=== PATIENT | female | born 1955 | race Caucasian/White ===

== ENCOUNTER → 2017-03-04 | Outpatient (CLI) | payer BC ==
[~2017-03-04] MED LIST: ACET500 PO; ASPI325 PO; ASPI81CH PO; Aspirin EC81 MG PO; CHOL10002 PO; GLUCOSAMINE1000 MG PO; HYDR1TAB94 PO; KRILL OIL 3001 EACH PO; MELA3; MUPI2TO; PROBIOTIC1 EAC1 PO; SHINGRIX V50 MCG/0.5 IM; TRAM50 PO; TURMERIC500 M2 PO; WOMEN'S 50+ DA1 EAC1 PO
[2017-03-09 11:28] LABS: HPV Genotype 16 Not Detected (NOTDET); HPV Genotype 18 Not Detected (NOTDET)
[2017-03-18 13:55] LABS: HPV High Risk Other Detected (NOTDET)
== END | disposition home or self-care (01) ==
LOC: LAB 13:58
PROVIDERS: Obstetrics & Gynecology Gynecology
DX: Z12.4 Encounter for screening for malignant neoplasm of cervix (principal)
CPT/HCPCS: 87624; G0123

== ENCOUNTER → 2018-05-04 | Outpatient (CLI) | payer BC ==
[2018-05-06 15:07] LABS: HPV 16 Negative (Negative); HPV 18 Negative (Negative); HPV OTHER HR TYPES Positive (Negative)
== END | disposition home or self-care (01) ==
LOC: LAB 16:08 → LAB SHORT 16:08
PROVIDERS: Obstetrics & Gynecology Gynecology
DX: Z12.4 Encounter for screening for malignant neoplasm of cervix (principal)
CPT/HCPCS: 87624; 87625; G0123

== ENCOUNTER → 2018-06-16 | Outpatient (CLI) | payer BC | END | disposition home or self-care (01) | LOC: LAB SHORT 07:51 → PLD 07:51 | DX: N87.9 Dysplasia of cervix uteri, unspecified (principal); N71.9 Inflammatory disease of uterus, unspecified | CPT/HCPCS: 88305 ==

== ENCOUNTER 2018-08-25 05:54 | Day surgery (SDC) | payer BC ==
[~2018-08-25] VITALS: Ht 152.4 cm; Wt 77.5 kg
[~2018-08-25 05:54] MED LIST changes: +ALEVE220 MG PO; +DIPH50 PO; -MELA3; +MELA3 PO
--- NOTE | 2018-08-25 06:51 | NUR ---
Ambulatory in Day Surgery History, Chart, Medications and Allergies reviewed before start of procedure.Patient confirms NPO status and agrees with scheduled surgery. Lungs clear T/O to Auscultation. Patient reports completing Chlorhexadine shower X2 prior to admission to hospital.
--- NOTE | 2018-08-25 15:00 | NUR ---
PT REFUSING BLOOD DRAW. THIS RN EDUCATED PT ON BENEFITS OF DRAW AND PT STILL REFUSES. WILL NOTIFY DR. ANNA.
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
--- NOTE | 2018-08-26 05:05 | NUR ---
SUMMARY: PT HAS DONE WELL POD 1. VSS, SCANT VAGINAL BLEED. PT TOOK WALK BEFORE BED, GIVEN PO PAIN MEDS X1, OTHERWISE HAS DENIED PAIN. TOLERATING REG DIET, NO N/V, SALINE LOCKED SINCE MY SHIFT START, PT IS DRINKING PLENTY OF WATER. PLAN TO DC MAZA THIS AM. NO SAFETY CONCERNS AT THIS TIME
--- NOTE | 2018-08-26 06:09 | NUR ---
DC'D PT VAGINAL PACKING AND MAZA AT THIS TIME, AWAITING VOID.
--- NOTE | 2018-08-26 07:00 | NUR ---
REPORT FROM DARREL MAYORGA. ASSUMED PT CARE. PT SITTING UP IN BED. CHEERFUL. DENIES NEEDS.
--- NOTE | 2018-08-26 07:15 | NUR ---
PT WALKING HALLS, GAIT WNL.
--- NOTE | 2018-08-26 07:30 | NUR ---
PT WALKING IN HALLS. GAIT WNL.
--- NOTE | 2018-08-26 07:54 | NUR ---
DR ANNA TO ROOM FOR EVAL AND TO DISCUSS DC. ASSESSMENT CHARTED.
--- NOTE | 2018-08-26 08:00 | NUR ---
PT UP TO RR, VOIDED WNL. POST VOID RESIDUAL >250ML. DR ANNA AWARE. PLAN TO CHECK AGAIN AND ORDERS TO PLACE CATHETER RECEIVED IN THE EVENT THAT PT CONTINUES TO HAVE RETENTION. PT UNDERSTANDS. DC TODAY.
[2018-08-26] MEDS ORDERED: OXYC5 PO (08:37)
--- NOTE | 2018-08-26 09:18 | NUR ---
PT WALKING HALLS. GAIT WNL.
--- NOTE | 2018-08-26 09:40 | NUR ---
PT VOIDED. POST VOID RESIDUAL >180ML. PT STATES TO GO AHEAD AND PLACE CATHETER.
--- NOTE | 2018-08-26 09:45 | NUR ---
16FR CATHETER PLACED. BALLOON INFLATED. GOOD URINE RETURN. STAT LOCK TO RIGHT LEG. INSTRUCTED PT HOW TO USE.
--- NOTE | 2018-08-26 09:52 | NUR ---
PT MEDICATED WITH 1 NORCO FOR C/O PAIN.
--- NOTE | 2018-08-26 09:56 | NUR ---
appt made for wednesdayaugust 29 at [address] removal [address] pitts office. pt aware. info on dc papers.
--- NOTE | 2018-08-26 10:30 | NUR ---
PT DRESSED AND WAITING FOR SPOUSE TO COME GET HER.
--- NOTE | 2018-08-26 10:55 | NUR ---
PT IV REMOVED. DRESSING PLACED. PT GEOVANNA WELL.
--- NOTE | 2018-08-26 11:00 | NUR ---
PT DC HOME. REVIEWED DC INSTRUCTIONS AND FU APPTS. PT ESCORTED TO FRONT LOBBY AND ASSISTED INTO CAR. ALL BELONGINGS SENT HOME.
== END 2018-08-26 11:04 | disposition home or self-care (01) ==
LOC: ORSCMMR 05:54 → ORD 07:30 → SURS 09:12 → ORSCMMR 08-26 11:04
PROVIDERS: Obstetrics & Gynecology Gynecology
PROC: 0JQC0ZZ Repair Pelvic Region Subcutaneous Tissue and Fascia, Open Approach (ICD-10-PCS; principal; 2018-08-25 07:30)
PROC: 0TSD0ZZ Reposition Urethra, Open Approach (ICD-10-PCS; principal; 2018-08-25 07:30)
DX: N81.10 Cystocele, unspecified (principal); N39.3 Stress incontinence (female) (male)
CPT/HCPCS: A9270-GY; C1771; J0690; J1100; J1885; J2250; J2405; J2704; J3010; J7120

== ENCOUNTER 2025-01-26 11:04 | Inpatient (IN) | payer MEDICARE ==
[2025-01-26] VITALS (40 sets, daily range): BP systolic 83–126; BP diastolic 61–102
[~2025-01-26] VITALS: Ht 170.2 cm; Wt 77.5 kg
[~2025-01-26 11:04] MED LIST changes: +OXYC5 PO
[2025-01-26 11:28] LABS: BASOPHILS ABSOLUTE AUTO 0.05 K/mm3 (0.00-0.23); BASOPHILS PERCENT AUTO 0 % (0-2); EOSINOPHILS ABSOLUTE AUTO 0.00 K/mm3 (0.00-0.68); EOSINOPHILS PERCENT AUTO 0 % (0-6); Hematocrit 44.7 % (33.0-51.0); Hemoglobin 15.0 g/dL (11.5-16.0); IMMATURE GRAN ABSOLUTE AUTO 0.09 K/mm3 (0.00-0.10); IMMATURE GRAN PERCENT AUTO 0 % (0-1); LYMPHOCYTES ABSOLUTE AUTO 2.35 K/mm3 (0.84-5.20); LYMPHOCYTES PERCENT AUTO 11 % (21-46); MONOCYTES ABSOLUTE AUTO 1.31 K/mm3 (0.16-1.47); MONOCYTES PERCENT AUTO 6 % (4-13); Mean Corpuscular HGB Conc 33.6 g/dL (31.5-36.5); Mean Corpuscular Volume 86 fL (80-100); NEUTROPHILS ABSOLUTE AUTO 16.79 K/mm3 (1.96-9.15); NEUTROPHILS PERCENT AUTO 82 % (41-73); NRBC ABSOLUTE 0.00 K/mm3 (0.00-0.02); NRBC Auto 0.0 /100 WBC (0.0-0.2); Platelet Count 226 K/mm3 (150-400); RDW Coefficient Variation 13.4 % (11.7-14.2); RDW Standard Deviation 42.1 fL (35.1-46.3)
[2025-01-26] MEDS ORDERED: Verapamil HCL 2.5 MG/ML 2ML Injection ONE (11:30)
[2025-01-26] MEDS ORDERED: Midazolam HCl 1MG / ML 2ML Vial ONE ×3 (11:30→12:32)
[2025-01-26] MEDS ORDERED: Heparin Sodium 1000 Units/ML 10ML MDV ONE ×2 (11:30→12:31)
[2025-01-26] MEDS ORDERED: FentaNYL Citrate 50 MCG/ML 2 ML Injection ONE (11:30)
[2025-01-26] MEDS ORDERED: NS 1,000 ML IV ONE ×2 (11:31→12:29)
[2025-01-26] MEDS ORDERED: NS 2,000 ML IV ONE (11:31)
[2025-01-26] MEDS ORDERED: Nitroglycerin 2 MG/20 ML BTL ONE (11:31)
[2025-01-26] MEDS ORDERED: NS 250 ML IV ONE (11:31)
[2025-01-26] MEDS ORDERED: Phenylephrine HCl 100 MCG/ML-NS 10MLSYR (1MG/10ML) ONE (11:35)
[2025-01-26 11:51] LABS: Alanine Aminotransfer (ALT/SGP 70 U/L (12-78); Albumin, Blood 3.6 g/dL (3.4-5.0); Albumin/Globulin Ratio 0.9 (0.8-1.8); Anion Gap 10 mmol/L (3-11); Aspartate Aminotrans (AST/SGOT 173 U/L (12-37); Bilirubin, Total 0.9 mg/dL (0.1-1.0); Blood Urea Nitrogen 31 mg/dL (8-24); CHOL/HDL RATIO 2.9; CO2, Blood 27 mmol/L (21-32); Calcium, Blood 9.8 mg/dL (8.5-10.1); Chloride, Blood 100 mmol/L (98-108); Cholesterol 193 mg/dL (50-200); Creatinine, Blood 1.35 mg/dL (0.40-1.00); Globulin, Blood 4.1 g/dL (2.2-4.0); Glucose, Blood 134 mg/dL (70-99); HDL Cholesterol 67 mg/dL (>39); LDL/HDL RATIO 1.3; Low Density Lipoprotein Chol 90 mg/dL (0-110); Magnesium, Blood 2.0 mg/dL (1.6-2.4); Potassium, Blood 3.3 mmol/L (3.5-5.5); Sodium, Blood 134 mmol/L (136-145); Total Protein, Blood 7.7 g/dL (6.4-8.2); Triglycerides 182 mg/dL (30-160); Very Low Density Lipoprot Chol 36 mg/dL (6-32)
[2025-01-26 11:52] LABS: Calcium, Ionized (POC) 1.20 mmol/L (1.10-1.46); Chloride (POC) 102 mmol/L (98-108); Creatinine (POC) 1.6 mg/dL (0.6-1.0); Glucose (ISTAT POC) 127 mg/dL (70-99); Hematocrit (POC) 46.0 % (36.0-46.0); Hemoglobin (POC) 15.6 g/dL (12.0-16.0); Potassium (POC) 3.3 mmol/L (3.5-5.5); Sodium (POC) 136 mmol/L (135-148); Total CO2 (POC) 23 mmol/L (21-32)
[2025-01-26] MEDS ORDERED: NS 500 ML IV ONE ×2 (12:30→12:33)
[2025-01-26] MEDS ORDERED: FLU VACC TS2025(65UP)/MF59C/PF 45 MCG/0.5 ML SYRINGE IM SCH (13:50)
[2025-01-26] MEDS ORDERED: NS 1,000 ML IV SCH (14:10)
--- NOTE | 2025-01-26 14:15 | NUR ---
ADMIT PT ARRIVED TO ICU 12 AT 1321 VIA BED. PT IS AWAKE, ALERT, AND ORIENTED UPON ARRIVAL. PT WITH IABP IN PLACE TO RIGHT GROIN SITE. IABP ON ECG TRIGGER AND 1:1 TIMING. SITE C/D/I, SUTURES INTACT. PT WITH RIGHT RADIAL TR BAND IN PLACE. PT WITH BILAT RADIAL AND PEDAL PULSES PRESENT. PT REPORTS MILD NUMBNESS TO ALL EXTREMITIES. VITAL SIGNS STABLE. PIV'S SALINE LOCKED UPON ARRIVAL. DR FONTAINE AT BEDSIDE TO SEE PT AT THIS TIME. PLAN FOR TRANSFER TO [facility] TOMORROW MORNING.
[2025-01-26 14:21] LABS: Anti-Xa UFH, PHA Monitoring <0.10 IU/mL; Prothrombin Time Results 13.3 Sec (9.7-11.5)
[2025-01-26] MEDS ORDERED: Heparin Sodium,Porcine/0.5 NS 500 ML IV SCH (14:45)
--- NOTE | 2025-01-26 18:00 | NUR ---
SHIFT SUMMARY PT REMAINS AWAKE, ALERT, AND ORIENTED. PT REMAINS ANXIOUS ABOUT HOSPITAL STAY AND PLANNED TRANSFER FOR CABG. PT REASSURED EXTENSIVELY BY DR FONTAINE, THIS RN, AND PRICING INTERN GATITO. PT REPORTS FEELING MORE AT EASE THIS EVENING. PT REMAINS WITH RIGHT FEMORAL BALLOON PUMP IN PLACE. SITE HAS REMAINED C/D/I, SOFT, NO OOZING OR HEMATOMA NOTED. IABP REMAINS 1:1 WITH ECG TRIGGER, AND NO BLOOD NOTED IN TUBING. RIGHT RADIAL ACCESS SITE TR BAND REMOVED PER POLICY, SITE SOFT, NONTENDER, NO HEMATOMA NOTED. VITAL SIGNS HAVE REMAINED STABLE. PT ON ROOM AIR. HEPARIN GTT INFUSING AT 12 UNTIS/KG/HR AND NS AT 100 ML/HR. MAZA IN PLACE WITH YELLOW URINE OUTPUT NOTED. PT REMAINS WITH INTACT PEDAL AND RADIAL PULSES, AND IMPROVED PINK COLOR TO EXTREMITIES. PT TAKING PO INTAKE WELL. WILL CONTINUE TO MONITOR AND REPORT OFF TO ONCOMING RN.
[2025-01-26] MEDS ORDERED: Heparin Sodium,Porcine 5,000 UNIT/0.5 ML SDV SC ONE (18:51)
[2025-01-26 21:34] LABS: Anti-Xa UFH, PHA Monitoring 0.16 IU/mL; Prothrombin Time Results 12.4 Sec (9.7-11.5)
[2025-01-26] MEDS ORDERED: Dose Adjust by Pharmacy XX STA (21:48)
[2025-01-26 22:04] LABS: BASOPHILS ABSOLUTE AUTO 0.05 K/mm3 (0.00-0.23); BASOPHILS PERCENT AUTO 0 % (0-2); EOSINOPHILS ABSOLUTE AUTO 0.03 K/mm3 (0.00-0.68); EOSINOPHILS PERCENT AUTO 0 % (0-6); Hematocrit 36.7 % (33.0-51.0); Hemoglobin 11.8 g/dL (11.5-16.0); IMMATURE GRAN ABSOLUTE AUTO 0.05 K/mm3 (0.00-0.10); IMMATURE GRAN PERCENT AUTO 0 % (0-1); LYMPHOCYTES ABSOLUTE AUTO 1.93 K/mm3 (0.84-5.20); LYMPHOCYTES PERCENT AUTO 15 % (21-46); MONOCYTES ABSOLUTE AUTO 0.65 K/mm3 (0.16-1.47); MONOCYTES PERCENT AUTO 5 % (4-13); Mean Corpuscular HGB Conc 32.2 g/dL (31.5-36.5); Mean Corpuscular Volume 88 fL (80-100); NEUTROPHILS ABSOLUTE AUTO 9.93 K/mm3 (1.96-9.15); NEUTROPHILS PERCENT AUTO 79 % (41-73); NRBC ABSOLUTE 0.00 K/mm3 (0.00-0.02); NRBC Auto 0.0 /100 WBC (0.0-0.2); Platelet Count 139 K/mm3 (150-400); RDW Coefficient Variation 13.5 % (11.7-14.2); RDW Standard Deviation 43.7 fL (35.1-46.3)
[2025-01-26 22:07] LABS: Alanine Aminotransfer (ALT/SGP 59 U/L (12-78); Albumin, Blood 3.1 g/dL (3.4-5.0); Albumin/Globulin Ratio 0.9 (0.8-1.8); Anion Gap 6 mmol/L (3-11); Aspartate Aminotrans (AST/SGOT 132 U/L (12-37); Bilirubin, Direct <0.1 mg/dL (0.0-0.3); Bilirubin, Indirect Unable to Calculate mg/dL (0.1-0.7); Bilirubin, Total 0.5 mg/dL (0.1-1.0); Blood Urea Nitrogen 31 mg/dL (8-24); CO2, Blood 24 mmol/L (21-32); Calcium, Blood 8.2 mg/dL (8.5-10.1); Chloride, Blood 108 mmol/L (98-108); Creatinine, Blood 0.92 mg/dL (0.40-1.00); Globulin, Blood 3.3 g/dL (2.2-4.0); Glucose, Blood 120 mg/dL (70-99); Potassium, Blood 3.6 mmol/L (3.5-5.5); Sodium, Blood 134 mmol/L (136-145); Total Protein, Blood 6.4 g/dL (6.4-8.2)
[2025-01-27] VITALS (28 sets, daily range): BP systolic 81–105; BP diastolic 59–78
[2025-01-27 04:06] LABS: BASOPHILS ABSOLUTE AUTO 0.05 K/mm3 (0.00-0.23); BASOPHILS PERCENT AUTO 1 % (0-2); EOSINOPHILS ABSOLUTE AUTO 0.06 K/mm3 (0.00-0.68); EOSINOPHILS PERCENT AUTO 1 % (0-6); Hematocrit 35.6 % (33.0-51.0); Hemoglobin 11.8 g/dL (11.5-16.0); IMMATURE GRAN ABSOLUTE AUTO 0.04 K/mm3 (0.00-0.10); IMMATURE GRAN PERCENT AUTO 0 % (0-1); LYMPHOCYTES ABSOLUTE AUTO 1.74 K/mm3 (0.84-5.20); LYMPHOCYTES PERCENT AUTO 16 % (21-46); MONOCYTES ABSOLUTE AUTO 0.63 K/mm3 (0.16-1.47); MONOCYTES PERCENT AUTO 6 % (4-13); Mean Corpuscular HGB Conc 33.1 g/dL (31.5-36.5); Mean Corpuscular Volume 87 fL (80-100); NEUTROPHILS ABSOLUTE AUTO 8.38 K/mm3 (1.96-9.15); NEUTROPHILS PERCENT AUTO 77 % (41-73); NRBC ABSOLUTE 0.00 K/mm3 (0.00-0.02); NRBC Auto 0.0 /100 WBC (0.0-0.2); Platelet Count 134 K/mm3 (150-400); RDW Coefficient Variation 13.5 % (11.7-14.2); RDW Standard Deviation 42.5 fL (35.1-46.3)
[2025-01-27 04:25] LABS: Alanine Aminotransfer (ALT/SGP 54.0 U/L (12-78); Albumin, Blood 2.5 g/dL (3.4-5.0); Albumin/Globulin Ratio 0.7 (0.8-1.8); Anion Gap 9.0 mmol/L (3-11); Aspartate Aminotrans (AST/SGOT 100.0 U/L (12-37); Bilirubin, Total 0.5 mg/dL (0.1-1.0); Blood Urea Nitrogen 20.0 mg/dL (8-24); CO2, Blood 22.0 mmol/L (21-32); Calcium, Blood 8.5 mg/dL (8.5-10.1); Chloride, Blood 109.0 mmol/L (98-108); Creatinine, Blood 0.77 mg/dL (0.40-1.00); Globulin, Blood 3.6 g/dL (2.2-4.0); Glucose, Blood 108.0 mg/dL (70-99); Potassium, Blood 3.7 mmol/L (3.5-5.5); Sodium, Blood 136.0 mmol/L (136-145); Total Protein, Blood 6.1 g/dL (6.4-8.2)
[2025-01-27] MEDS ORDERED: Dose Adjust by Pharmacy XX STA (05:17)
--- NOTE | 2025-01-27 07:01 | NUR ---
ASSUMED CARE BEDSIDE REPORT RECIEVED. PT IS AWAKE, ALERT, AND ORIENTED. PT DENIES CHEST PAIN OR DISCOMFORT. PT WITH IABP IN PLACE TO RIGHT FEMORAL SITE, C/D/I. IABP 1:1, ECG TRIGGER. NO BLOOD NOTED IN GAS TUBING. VITAL SIGNS STABLE. PT WITH PEDAL AND RADIAL PULSES PRESENT AND EXTREMITIES PINK AND WARM. MAZA IN PLACE WITH YELLOW URINE OUTPUT NOTED. HEPARIN GTT INFUSING AT 15 UNITS/KG/HR. RIGHT RADIAL ACCESS SITE WITH DRESSING C/D/I. PLAN FOR TRANSFER TO [facility] THIS MORNING AT 0730.
== END 2025-01-27 08:28 | disposition short-term general hospital (02) | DRG 270 ==
LOC: ER 11:04 → ICUE 11:35
PROVIDERS: Emergency Medicine; Family Medicine; ADMIT Student in an Organized Health Care Education/Training Program
PROC: 5A02210 Assistance with Cardiac Output using Balloon Pump, Continuous (ICD-10-PCS; principal; 2025-01-26)
PROC: 4A023N7 Measurement of Cardiac Sampling and Pressure, Left Heart, Percutaneous Approach (ICD-10-PCS; 2025-01-26)
PROC: B2111ZZ Fluoroscopy of Multiple Coronary Arteries using Low Osmolar Contrast (ICD-10-PCS; 2025-01-26)
PROC: B24BZZZ Ultrasonography of Heart with Aorta (ICD-10-PCS; 2025-01-26)
DX: I21.09 ST elevation (STEMI) myocardial infarction involving other coronary artery of anterior wall (principal); I50.21 Acute systolic (congestive) heart failure; K72.00 Acute and subacute hepatic failure without coma; R57.0 Cardiogenic shock; N17.9 Acute kidney failure, unspecified; E87.21 Acute metabolic acidosis; Z88.8 Allergy status to other drugs, medicaments and biological substances; I25.10 Atherosclerotic heart disease of native coronary artery without angina pectoris; I25.5 Ischemic cardiomyopathy; M19.90 Unspecified osteoarthritis, unspecified site; Z98.890 Other specified postprocedural states; Z96.653 Presence of artificial knee joint, bilateral; Z87.891 Personal history of nicotine dependence; F41.9 Anxiety disorder, unspecified; G47.00 Insomnia, unspecified
CPT/HCPCS: 33967; 36415; 51702; 71045; 76937; 80047; 80053; 80061; 82248; 83605; 83735; 84484; 85014; 85025; 85347; 85520; 85610; 85730; 86850; 86900; 86901; 93005; 93010; 93458; 99152; 99153; 99285-25; A9270; C1769; C1887; C1894; C8929; J0461; J1644; J2250; J2371; J3010; J3246; J3480; J7030; J7040; J7050; Q9957; Q9967

== ENCOUNTER 2025-02-04 14:33 | Inpatient (IN) | payer MEDICARE ==
[~2025-02-04] VITALS: Ht 170.2 cm; Wt 74.3 kg
[2025-02-04 15:33] LABS: BASOPHILS ABSOLUTE AUTO 0.05 K/mm3 (0.00-0.23); BASOPHILS PERCENT AUTO 1 % (0-2); EOSINOPHILS ABSOLUTE AUTO 0.06 K/mm3 (0.00-0.68); EOSINOPHILS PERCENT AUTO 1 % (0-6); Hematocrit 40.2 % (33.0-51.0); Hemoglobin 12.9 g/dL (11.5-16.0); IMMATURE GRAN ABSOLUTE AUTO 0.05 K/mm3 (0.00-0.10); IMMATURE GRAN PERCENT AUTO 1 % (0-1); LYMPHOCYTES ABSOLUTE AUTO 1.25 K/mm3 (0.84-5.20); LYMPHOCYTES PERCENT AUTO 15 % (21-46); MONOCYTES ABSOLUTE AUTO 0.48 K/mm3 (0.16-1.47); MONOCYTES PERCENT AUTO 6 % (4-13); Mean Corpuscular HGB Conc 32.1 g/dL (31.5-36.5); Mean Corpuscular Volume 88 fL (80-100); NEUTROPHILS ABSOLUTE AUTO 6.57 K/mm3 (1.96-9.15); NEUTROPHILS PERCENT AUTO 78 % (41-73); NRBC ABSOLUTE 0.00 K/mm3 (0.00-0.02); NRBC Auto 0.0 /100 WBC (0.0-0.2); Platelet Count 367 K/mm3 (150-400); RDW Coefficient Variation 14.0 % (11.7-14.2); RDW Standard Deviation 44.3 fL (35.1-46.3)
[2025-02-04 15:50] LABS: Alanine Aminotransfer (ALT/SGP 55.0 U/L (12-78); Albumin, Blood 3.4 g/dL (3.4-5.0); Albumin/Globulin Ratio 0.8 (0.8-1.8); Anion Gap 11.0 mmol/L (3-11); Aspartate Aminotrans (AST/SGOT 30.0 U/L (12-37); Bilirubin, Total 0.4 mg/dL (0.1-1.0); Blood Urea Nitrogen 19.0 mg/dL (8-24); CO2, Blood 25.0 mmol/L (21-32); Calcium, Blood 9.3 mg/dL (8.5-10.1); Chloride, Blood 107.0 mmol/L (98-108); Creatinine, Blood 0.95 mg/dL (0.40-1.00); Globulin, Blood 4.0 g/dL (2.2-4.0); Glucose, Blood 111.0 mg/dL (70-99); Potassium, Blood 3.7 mmol/L (3.5-5.5); Sodium, Blood 139.0 mmol/L (136-145); Total Protein, Blood 7.4 g/dL (6.4-8.2)
[2025-02-04] MEDS ORDERED: Furosemide 10 MG / ML 2ML Vial IV ONE ×2 (17:10→18:00)
[2025-02-04] MEDS ORDERED: Prochlorperazine Edisylate 10 mg Vial IV PRN (18:00)
[2025-02-04] MEDS ORDERED: FLU VACC TS2025(65UP)/MF59C/PF 45 MCG/0.5 ML SYRINGE IM SCH (18:05)
[2025-02-04] MEDS ORDERED: LOW DOSE ASPIRI81 M1 PO (19:15)
[2025-02-04] MEDS ORDERED: PLAVIX75 MG PO (19:15)
[2025-02-04] MEDS ORDERED: LISI5 PO (19:15)
[2025-02-04] MEDS ORDERED: METOPROLOL SUCC25 MG PO (19:15)
[2025-02-04] MEDS ORDERED: PANTOPRAZOLE SO40 M2 PO (19:15)
[2025-02-04 20:13] VITALS: BP 121/91
[2025-02-04] MEDS ORDERED: NITR.4SL SL (20:16)
--- NOTE | 2025-02-04 20:38 | NUR ---
ARRIVAL TO PCU 14 PT ARRIVED VIA GURNEY AND WAS SLIDE OVER TO PVU BED BY 5 STAFF MEMBERS. SHE IS VERY SHORT OF BREATH ON ARRIVAL AND IS NOT ABLE TO GEOVANNA MOVEMENT AT THIS TIME. SHE IS CURRENTLY ON 4L NC, HAVING ISSUES GETTING A GOOD SPO2 READING, SEEMS TO WORK BEST ON HER EAR, SATTING AROUND 93% AT THIS TIME. PT IS A+OX4 ABLE TO MAKE NEEDS KNOWN AND ANSWER QUESTIONS APPRT. SNACKS AND WATER PROVIDED TO PT. SHE STATES SHE LIVES ALONE IN A HOME, HER A FEW YEARS AGO BUT SHE HAS FAMILY WHO VISIT OFTEN. SHE IS PLEASANT AND COOPERATIVE WITH CARE. CALL LIGHT IN REACH.
[2025-02-04 23:29] VITALS: BP 98/72
[2025-02-05 04:15] VITALS: BP 127/84
[2025-02-05 05:10] LABS: BASOPHILS ABSOLUTE AUTO 0.07 K/mm3 (0.00-0.23); BASOPHILS PERCENT AUTO 1 % (0-2); EOSINOPHILS ABSOLUTE AUTO 0.18 K/mm3 (0.00-0.68); EOSINOPHILS PERCENT AUTO 3 % (0-6); Hematocrit 36.6 % (33.0-51.0); Hemoglobin 11.9 g/dL (11.5-16.0); IMMATURE GRAN ABSOLUTE AUTO 0.04 K/mm3 (0.00-0.10); IMMATURE GRAN PERCENT AUTO 1 % (0-1); LYMPHOCYTES ABSOLUTE AUTO 1.49 K/mm3 (0.84-5.20); LYMPHOCYTES PERCENT AUTO 22 % (21-46); MONOCYTES ABSOLUTE AUTO 0.48 K/mm3 (0.16-1.47); MONOCYTES PERCENT AUTO 7 % (4-13); Mean Corpuscular HGB Conc 32.5 g/dL (31.5-36.5); Mean Corpuscular Volume 89 fL (80-100); NEUTROPHILS ABSOLUTE AUTO 4.51 K/mm3 (1.96-9.15); NEUTROPHILS PERCENT AUTO 67 % (41-73); NRBC ABSOLUTE 0.00 K/mm3 (0.00-0.02); NRBC Auto 0.0 /100 WBC (0.0-0.2); Platelet Count 321 K/mm3 (150-400); RDW Coefficient Variation 13.9 % (11.7-14.2); RDW Standard Deviation 44.7 fL (35.1-46.3)
[2025-02-05 05:42] LABS: Magnesium, Blood 2.2 mg/dL (1.6-2.4); Thyroid Stimulating Hormone 4.99 uIU/mL (0.360-4.800)
[2025-02-05 05:43] LABS: Anion Gap 10.0 mmol/L (3-11); Blood Urea Nitrogen 17.0 mg/dL (8-24); CO2, Blood 24.0 mmol/L (21-32); Calcium, Blood 8.7 mg/dL (8.5-10.1); Chloride, Blood 108.0 mmol/L (98-108); Creatinine, Blood 0.83 mg/dL (0.40-1.00); Glucose, Blood 98.0 mg/dL (70-99); Potassium, Blood 3.3 mmol/L (3.5-5.5); Sodium, Blood 139.0 mmol/L (136-145)
--- NOTE | 2025-02-05 06:29 | NUR ---
NOC SHIFT SUMMARY PT IS A+OX4 ABLE TO MAKE NEEDS KNOWN. PT HAS SLEPT MOST OF THE NIGHT AND WILL BECOME UPSET WHEN YOU AWAKE HER FOR CARES. SHE IS HOWEVER COOPERATIVE W/ CARE. PT REMAINS ON 4L NC, SATTING 94% CURRENTLY. WOB SEEMS TO HAVE IMPROVED SINCE ARRIVAL TO UNIT. RR DECREASED. SHE DENIES SOB AT THIS TIME. TELE IN PLACE SHOWING SINUS IN THE 70'S, NO ACUTE EVENTS OVERNIGHT. DENIES CHEST PAIN OR PRESSURE. BED IN LOWEST POSTION, CALL LIGHT IN REACH. WILL REPORT TO ONCOMING RN.
[2025-02-05 07:44] VITALS: BP 115/78
--- NOTE | 2025-02-05 08:18 | NUR ---
PALLIATIVE CARE CONSULT: CONSULT RECEIVED FOR READMISSION. REVIEWED MEDICAL RECORD. PT HAS POLST ON FILE. READMISSION FOR CHF. RECENT ECHO SHOWS EF OF 25-30%. WILL DISCUSS IN MDR.
[2025-02-05] MEDS ORDERED: Enoxaparin 40 MG/0.4 ML SYR SC SCH (09:00)
[2025-02-05 11:34] VITALS: BP 113/78
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
[2025-02-05 15:41] VITALS: BP 101/74
--- NOTE | 2025-02-05 18:21 | NUR ---
SHIFT SUMMARY: PT HAS BEEN COOPERATIVE THE ENTIRE SHIFT. SHE WAS ABLE TO TOLERATE HER DIET AND MEDICATIONS WELL. VITAL: HR AT 90S, WIH EPISODES OF TACHYCARDIA ON EXCERTION. SBP ON 115, SATS AT >95% BUT AT TIMES GOES DOWN TO 88% WHEN TALKING FOR TOO LONG. ON O2 AT 4 LPM UPON CHANGE OF SHIFT AND TITRATED DOWN TO 2LPM. PT HAD UNDERGONE A BEDSIDE 2DECHO. WILL REPORT TO NEXT SHIFT.
[2025-02-05 19:30] VITALS: BP 93/67
[2025-02-05 20:24] LABS: Prothrombin Time Results 11.9 Sec (9.7-11.5)
[2025-02-05] MEDS ORDERED: Heparin Sodium,Porcine/0.5 NS 500 ML IV SCH (20:45)
--- NOTE | 2025-02-05 21:02 | NUR ---
NURSE NOTE PT IS VERY UPSET (CRYING) WITH WAITING ALL DAY AND ECHO READING NOT BEING SHARED WITH HER. HEPARIN GTT WAS ORDERD AND PATIENT WAS HESITANT TO ALLOW THIS RN TO START IT. RN ONCOLOGY RAE WAS CALLED TO THE ROOM TO HELP ALLIVATE PT AXIETY. RESIDENT MD WAS CALLED AND AGREED TO COME SPEAK WITH PT AND ANSWER HER QUESTIONS. PT IS ADAMANT ABOUT GOING HOME IN THE MORNING AND SPENDING THE HOLIDAYS WITH HER FAMILY REGARDLESS OF THE RISKS.
--- NOTE | 2025-02-05 21:34 | NUR ---
nurse note MD AT BEDSIDE ANSWERING PT QUESTIONS.
[2025-02-05 23:50] VITALS: BP 90/79
[2025-02-06 03:36] VITALS: BP 100/82
[2025-02-06 04:06] LABS: BASOPHILS ABSOLUTE AUTO 0.06 K/mm3 (0.00-0.23); BASOPHILS PERCENT AUTO 1 % (0-2); EOSINOPHILS ABSOLUTE AUTO 0.24 K/mm3 (0.00-0.68); EOSINOPHILS PERCENT AUTO 3 % (0-6); Hematocrit 42.2 % (33.0-51.0); Hemoglobin 13.8 g/dL (11.5-16.0); IMMATURE GRAN ABSOLUTE AUTO 0.05 K/mm3 (0.00-0.10); IMMATURE GRAN PERCENT AUTO 1 % (0-1); LYMPHOCYTES ABSOLUTE AUTO 2.24 K/mm3 (0.84-5.20); LYMPHOCYTES PERCENT AUTO 27 % (21-46); MONOCYTES ABSOLUTE AUTO 0.58 K/mm3 (0.16-1.47); MONOCYTES PERCENT AUTO 7 % (4-13); Mean Corpuscular HGB Conc 32.7 g/dL (31.5-36.5); Mean Corpuscular Volume 87 fL (80-100); NEUTROPHILS ABSOLUTE AUTO 5.05 K/mm3 (1.96-9.15); NEUTROPHILS PERCENT AUTO 61 % (41-73); NRBC ABSOLUTE 0.00 K/mm3 (0.00-0.02); NRBC Auto 0.0 /100 WBC (0.0-0.2); Platelet Count 344 K/mm3 (150-400); RDW Coefficient Variation 13.8 % (11.7-14.2); RDW Standard Deviation 42.5 fL (35.1-46.3)
[2025-02-06 04:31] LABS: Anion Gap 12.0 mmol/L (3-11); Blood Urea Nitrogen 23.0 mg/dL (8-24); CO2, Blood 27.0 mmol/L (21-32); Calcium, Blood 9.0 mg/dL (8.5-10.1); Chloride, Blood 102.0 mmol/L (98-108); Creatinine, Blood 1.2 mg/dL (0.40-1.00); Glucose, Blood 95.0 mg/dL (70-99); Potassium, Blood 3.7 mmol/L (3.5-5.5); Sodium, Blood 137.0 mmol/L (136-145)
[2025-02-06] MEDS ORDERED: Dose Adjust by Pharmacy XX STA (04:57)
--- NOTE | 2025-02-06 06:10 | NUR ---
NOC SHIFT SUMMARY PT IS A+OX4 ABLE TO MAKE NEEDS KNOWN, SHE IS EXTERMLY ANXIOUS. SHE IS STILL MENTIONING WANTING TO LEAVE THIS MORNING (SHE HAS ANIMALS TO ATTEND TOO, AND THANKSGIVING PLANS). PT HAS BEEN EDUCATED ON THE RISKS OF LEAVING AMA. BP IS SOFT BUT SHE STATES THIS IS HER NORMAL AND DENIES CHEST PAIN OR PRESSURE. PT DOES NOT WEAR O2 AT BASELINE, WAS REQUIRIG 4L AT START OF SHIFT BUT TIRATED DOWN TO 2L NC. WAS ABLE TO TURN O2 OFF FOR AWHILE EARILER IN THE SHIFT BUT HAD TO TURN IT BACK ON WHEN SHE DRIFTED OFF TO SLEEP. O2 HAS SENSE AGAIN BEEN TURNED OFF AND SHE IS CURRENTLY SATTING AT 96%, DENIES SOB. HEPARIN INFUSING PER EMAR.. JONNA MADSEN, AND BRIEF CHANGED, LENORA CARE PROVIDED. PT OFFERED SHOWER OR BED BATH, PATIENT DENIED. BED IN LOWEST POSTION, CALL LIGHT IN REACH.
[2025-02-06 07:13] VITALS: BP 91/68
--- NOTE | 2025-02-06 08:31 | NUR ---
UPDATE: MD FRANCO CONTACTED TO REVIEW EMAR, MD FRANCO IS REVIEWING CHART, AWAITING NEW ORDERS. PHARMACY CONTACTED TO REVIEW EMAR AND HEPARIN GTT.
[2025-02-06 11:10] VITALS: BP 117/86
[2025-02-06] MEDS ORDERED: ELIQUIS5 M2 PO (12:35)
[2025-02-06] MEDS ORDERED: JARDIANCE10 MG PO (12:37)
[2025-02-06] MEDS ORDERED: FURO40 PO (12:37)
[2025-02-06] MEDS ORDERED: POTA20LUD PO (12:38)
--- NOTE | 2025-02-06 13:23 | NUR ---
DISCHARGE SUMMARY: A/O X4, PLEASANT AND COOPERATIVE WITH CARE, PT USES CALL LIGHT APPROPRIATELY, ABLE TO COMMUNICATE NEEDS, PT STATES, "I WANT TO GO HOME TODAY, I'M READY TO GO HOME" THIS AM. NSR, HR 70'S, STENTS PLACED IN PROXIMAL LAD AND AND MID RCA AT [facility] ON 01/28/25, ANTICOAGULAT REGIMINE CHANGED PER MD QUINONEZ WITH RECOMMENDATION TO FOLLOW UP WITH PACKING HOUSE SUPERVISOR AFTER DISCHARGE, PT DENIES DIZZINESS, CHEST, PAIN OR PRESSURE. SPO2 >92% ON RA, DENIES SOB AT REST, ENDORSES SOB WITH MILD EXERTION BUT O2 SATS REMAIN >90%. PT DISCHARGD TO HOME IN NO ACUTE STRESS AT THIS TIME. THIS RN WENT OVER WRITTEN AND VERBAL DC INSTRUCTIONS. DENIES ANY QUESTIONS OR CONCERNS. PTS BELONGINGS COLLECTED AND PT DISCHARGED VIA WHEEL CHAIR BY [employer] PUMP STATION OPERATOR. IV REMOVED WITH CATHETER INTACT.
== END 2025-02-06 13:36 | disposition home health service (06) | DRG 282 ==
LOC: ER 14:33 → PCU 17:57 → ERHOLD 17:57 → PCU 19:47
PROVIDERS: Student in an Organized Health Care Education/Training Program; ADMIT Internal Medicine
PROC: B24BZZZ Ultrasonography of Heart with Aorta (ICD-10-PCS; principal; 2025-02-05)
DX: I50.23 Acute on chronic systolic (congestive) heart failure (principal); I21.A9 Other myocardial infarction type; I22.2 Subsequent non-ST elevation (NSTEMI) myocardial infarction; M17.0 Bilateral primary osteoarthritis of knee; K21.9 Gastro-esophageal reflux disease without esophagitis; Z87.891 Personal history of nicotine dependence; Z88.8 Allergy status to other drugs, medicaments and biological substances
CPT/HCPCS: 36415; 71046; 71260; 80048; 80053; 83735; 83880; 84439; 84443; 84484; 85025; 85379; 85610; 85730; 93005; 93010; 94762; 99285-25; A9270; C8929; J1644; J1650; J1938; Q9957; Q9967